=== PATIENT | female | born 1935 | race Caucasian/White ===

== ENCOUNTER 2023-10-03 14:18 | Emergency (ER) | payer MEDICARE, MEDICAID ==
[~2023-10-03] VITALS: Ht 154.9 cm; Wt 49.1 kg
[~2023-10-03 14:18] MED LIST: ASPI-1265 PO; LOP25T PO
[2023-10-03] MEDS ORDERED: normal saline 1000ML IV soln IVB ONE (16:25)
[2023-10-03 17:08] LABS: BASOPHILS % (AUTO) 0.5 % (0-1); EOSINOPHILS % (AUTO) 0.9 % (0-6); HEMATOCRIT 36.5 % (35.0-45.0); HEMOGLOBIN 12.1 g/dl (12.0-16.0); LYMPHOCYTES # (AUTO) 1.7 X10'3 (1.1-4.8); LYMPHOCYTES % (AUTO) 32.6 % (21-51); MEAN CORPUSCULAR HEMOGLOBIN 34.9 PG (27.0-31.0); MEAN CORPUSCULAR HGB CONC 33.1 g/dL (33.0-36.5); MEAN CORPUSCULAR VOLUME 105.6 FL (78-98); MONOCYTES # (AUTO) 0.3 X10'3 (0-0.9); NEUTROPHILS # (AUTO) 3.1 X10'3 (1.8-7.7); PLATELET COUNT 281 X10'3 (140-440); RED BLOOD COUNT 3.46 X10'6 (4.20-5.60); RED CELL DISTRIBUTION WIDTH 14.9 % (11.5-14.5); WHITE BLOOD COUNT 5.1 X10'3 (4.5-11.0)
[2023-10-03 17:19] LABS: PROTHROMBIN TIME 10.4 SECONDS (9.0-12.0)
[2023-10-03 17:24] LABS: ALANINE AMINOTRANSFERASE 15 U/L (12-78); ALBUMIN 3.7 G/DL (3.4-5.0); ALBUMIN/GLOBULIN RATIO 0.8 (1.1-1.5); ALKALINE PHOSPHATASE 124 IU/L (46-116); ANION GAP 14 (8-16); ASPARTATE AMINO TRANSFERASE 14 U/L (10-37); BILIRUBIN,TOTAL 0.5 MG/DL (0.1-1.0); BLOOD UREA NITROGEN 43 MG/DL (7-18); BUN/CREATININE RATIO 27.6 (10.0-20.0); CHLORIDE 105 MMOL/L (99-107); CREATININE 1.56 MG/DL (0.40-0.90); GLUCOSE 137 MG/DL (70-104); POTASSIUM 4.9 MMOL/L (3.5-5.1); SODIUM 138 MMOL/L (135-145); TOTAL CARBON DIOXIDE 19.5 MMOL/L (24-32); TOTAL PROTEIN 8.3 G/DL (6.4-8.2); eCRCL 19 ML/MIN; eGFR 31 ML/MIN
[2023-10-03 17:27] LABS: LIPASE 9 U/L (16-77)
[2023-10-03] MEDS ORDERED: amox tr/potassium clavulanate 500mg/125mg TAB PO ONE (19:20)
[2023-10-03] MEDS ORDERED: LOPE2CAP PO (19:20)
[2023-10-03] MEDS ORDERED: AMOX-419 PO (19:20)
[2023-10-03] MEDS ORDERED: ondansetron 4mg rapidly disintigrating tab PO ONE (19:20)
[2023-10-03] MEDS ORDERED: loperamide 2mg capsule PO ONE (19:20)
[2023-10-03] MEDS ORDERED: ONDA8TAB13 PO (19:20)
[2023-10-03 19:34] VITALS: BP 168/86; PULSE 89; RESP 16; TEMP 98; O2SAT 98
== END 2023-10-03 19:37 | disposition admitted as inpatient to this hospital (09) ==
LOC: ER 14:19
DX: K52.9 Noninfective gastroenteritis and colitis, unspecified (principal); M54.50 Low back pain, unspecified; R32 Unspecified urinary incontinence; I10 Essential (primary) hypertension; E11.9 Type 2 diabetes mellitus without complications; Z79.82 Long term (current) use of aspirin; Z79.899 Other long term (current) drug therapy
CPT/HCPCS: 36415; 74176; 80053; 83605; 83690; 83735; 84145; 84484; 85025; 85610; 93005; 96360; 96361; 99285; J7030; 99284

== ENCOUNTER 2023-12-23 14:33 | Inpatient (IN) | payer MEDICARE, MEDICAID ==
[~2023-12-23] VITALS: Ht 152.4 cm; Wt 52.6 kg
[~2023-12-23 14:33] MED LIST changes: +LOPE2CAP PO; +ONDA8TAB13 PO
[2023-12-23] MEDS: HYDROcodone/acetaminophen 5mg/325mg tablet PO ONE (16:32)
[2023-12-23] MEDS: ondansetron 4mg rapidly disintigrating tab PO ONE (16:33)
[2023-12-23 17:51] LABS: BASOPHILS % (AUTO) 0.3 % (0-1); EOSINOPHILS % (AUTO) 0 % (0-6); HEMATOCRIT 34.7 % (35.0-45.0); HEMOGLOBIN 11.7 g/dl (12.0-16.0); LYMPHOCYTES # (AUTO) 1.2 X10'3 (1.1-4.8); LYMPHOCYTES % (AUTO) 15.2 % (21-51); MEAN CORPUSCULAR HEMOGLOBIN 36.5 PG (27.0-31.0); MEAN CORPUSCULAR HGB CONC 33.6 g/dL (33.0-36.5); MEAN CORPUSCULAR VOLUME 108.6 FL (78-98); MEAN PLATELET VOLUME 7.6 FL (7.4-10.4); MONOCYTES # (AUTO) 0.3 X10'3 (0-0.9); MONOCYTES % (AUTO) 3.8 % (2-12); NEUTROPHILS # (AUTO) 6.5 X10'3 (1.8-7.7); NEUTROPHILS % (AUTO) 80.7 % (42-75); PLATELET COUNT 292 X10'3 (140-440); RED BLOOD COUNT 3.19 X10'6 (4.20-5.60); RED CELL DISTRIBUTION WIDTH 14.3 % (11.5-14.5)
[2023-12-23 17:54] LABS: ALBUMIN 3.3 G/DL (3.4-5.0); ANION GAP 14 (8-16); BLOOD UREA NITROGEN 33 MG/DL (7-18); BUN/CREATININE RATIO 20.1 (10.0-20.0); CALCIUM 9.4 MG/DL (8.5-10.1); CHLORIDE 105 MMOL/L (99-107); CREATININE 1.64 MG/DL (0.40-0.90); GLUCOSE 192 MG/DL (70-104); POTASSIUM 4.5 MMOL/L (3.5-5.1); SODIUM 138 MMOL/L (135-145); TOTAL CARBON DIOXIDE 19.3 MMOL/L (24-32); eCRCL 17 ML/MIN; eGFR 30 ML/MIN
[2023-12-23] MEDS ORDERED: magnesium Cl slow-release 64mg tablet PO PRN (21:15)
[2023-12-23] MEDS ORDERED: mag hydrox/Alum hydrox/simeth 30ml oral suspension PO PRN (21:15)
[2023-12-23] MEDS ORDERED: potassium Cl 20 mEq SR tablet PO PRN ×2 (21:15)
[2023-12-23] MEDS ORDERED: potassium Cl 40MEQ/1/2NS 520ml 520 ML IV PRN (21:15)
[2023-12-23] MEDS ORDERED: magnesium 2GM in 50ml NS 50 ML IV PRN (21:15)
[2023-12-23] MEDS ORDERED: acetaminophen 325mg tablet PO PRN (21:15)
[2023-12-23] MEDS ORDERED: magnesium hydroxide 30ml (MOM) UD suspension PO PRN (21:15)
[2023-12-23] MEDS ORDERED: ondansetron/PF 4mg/2ml inj IV PRN (21:15)
[2023-12-23] MEDS ORDERED: magnesium 4gm in 100ml NS 100 ML IV PRN (21:15)
[2023-12-23] MEDS: normal saline 1000ml 1,000 ML IV SCH (21:59)
[2023-12-23] MEDS: HYDROcodone/acetaminophen 10/325mg tab PO PRN (22:04)
[2023-12-23 22:30] VITALS: BP 134/70; PULSE 87; RESP 14; RESP 16; TEMP 98.8; O2SAT 96
[2023-12-23] MEDS: MESSAGE TO PHARMACY PO ONE (23:20)
[2023-12-23] MEDS ORDERED: DEXTROSE 15 GM of carb/4 tabs (each vial/BOTTLE has 4 tablets) PO PRN ×2 (23:20)
[2023-12-23] MEDS ORDERED: dextrose 50%-water 50ml dispensing syringe IV PRN ×2 (23:20)
[2023-12-23] MEDS ORDERED: glucagon, human recombinant 1mg kit SUBCUT PRN (23:20)
[2023-12-24] VITALS (8 sets, daily range): BP systolic 95–162; BP diastolic 55–89; PULSE 65–122; RESP 14–18; TEMP 97.9–98.6; O2SAT 95–99
[2023-12-24 00:21] LABS: HEMOGLOBIN A1C 6.8 % (4.5-6.2)
[2023-12-24] MEDS: insulin glargine (Lantus) pen - multi-dose SQ SCH (00:38)
[2023-12-24 06:20] LABS: BASOPHILS % (AUTO) 0.2 % (0-1); EOSINOPHILS % (AUTO) 0 % (0-6); HEMATOCRIT 29.3 % (35.0-45.0); LYMPHOCYTES # (AUTO) 1.3 X10'3 (1.1-4.8); MEAN CORPUSCULAR HEMOGLOBIN 37.1 PG (27.0-31.0); MEAN CORPUSCULAR HGB CONC 34.3 g/dL (33.0-36.5); MEAN CORPUSCULAR VOLUME 108.4 FL (78-98); MEAN PLATELET VOLUME 7.4 FL (7.4-10.4); MONOCYTES # (AUTO) 0.3 X10'3 (0-0.9); MONOCYTES % (AUTO) 4.5 % (2-12); NEUTROPHILS # (AUTO) 5.3 X10'3 (1.8-7.7); NEUTROPHILS % (AUTO) 76.3 % (42-75); PLATELET COUNT 240 X10'3 (140-440); RED CELL DISTRIBUTION WIDTH 14.2 % (11.5-14.5); WHITE BLOOD COUNT 6.9 X10'3 (4.5-11.0)
[2023-12-24 06:30] LABS: ALBUMIN 2.7 G/DL (3.4-5.0); ANION GAP 5 (8-16); BLOOD UREA NITROGEN 31 MG/DL (7-18); BUN/CREATININE RATIO 21.1 (10.0-20.0); CALCIUM 8.4 MG/DL (8.5-10.1); CHLORIDE 109 MMOL/L (99-107); CREATININE 1.47 MG/DL (0.40-0.90); GLUCOSE 188 MG/DL (70-104); MAGNESIUM 1.8 MG/DL (1.5-2.4); PHOSPHORUS 4.4 MG/DL (2.3-4.5); SODIUM 137 MMOL/L (135-145); eCRCL 19 ML/MIN; eGFR 34 ML/MIN
[2023-12-24 06:37] LABS: POTASSIUM 6.1 MMOL/L (3.5-5.1)
[2023-12-24] MEDS: K and/or MAG REPLACEMENT MC SCH (08:00)
[2023-12-24] MEDS: heparin, porcine 5000 units/ml vial SQ SCH (08:00)
[2023-12-24] MEDS: FLU VACC QS2023-24(6MOS UP)/PF 60 MCG/0.5 ML SYRINGE IM ONE (10:00)
[2023-12-24] MEDS: albuterol 2.5 MG/3 ML nebule NEB ONE (13:15)
[2023-12-24] MEDS: insulin Lispro (HumaLOG) vial - multi-dose SQ SCH (13:52)
[2023-12-24] MEDS: insulin regular, human 10 units/0.1 ml syringe SQ ONE (13:54)
[2023-12-24] MEDS: dextrose 50%-water 50ml dispensing syringe IV ONE (13:55)
[2023-12-24] MEDS: CALCIUM GLUC 1gm/50ml NACL,iso 50 ML IV ONE (13:55)
[2023-12-24] MEDS: metoprolol tartrate 25mg tablet PO ONE (18:46)
[2023-12-24] MEDS: metoprolol tartrate 25mg tablet PO SCH (21:00)
[2023-12-25 05:48] LABS: ALBUMIN 2.3 G/DL (3.4-5.0); ANION GAP 10 (8-16); BLOOD UREA NITROGEN 29 MG/DL (7-18); BUN/CREATININE RATIO 20.7 (10.0-20.0); CALCIUM 8.6 MG/DL (8.5-10.1); CHLORIDE 109 MMOL/L (99-107); GLUCOSE 193 MG/DL (70-104); MAGNESIUM 1.6 MG/DL (1.5-2.4); PHOSPHORUS 3.2 MG/DL (2.3-4.5); POTASSIUM 5.3 MMOL/L (3.5-5.1); SODIUM 139 MMOL/L (135-145); eCRCL 20 ML/MIN; eGFR 35 ML/MIN
[2023-12-25 05:58] LABS: BASOPHILS % (AUTO) 0.2 % (0-1); EOSINOPHILS % (AUTO) 0.2 % (0-6); HEMATOCRIT 25.9 % (35.0-45.0); HEMOGLOBIN 8.8 g/dl (12.0-16.0); LYMPHOCYTES # (AUTO) 1.3 X10'3 (1.1-4.8); LYMPHOCYTES % (AUTO) 20.2 % (21-51); MEAN CORPUSCULAR HEMOGLOBIN 37.2 PG (27.0-31.0); MEAN CORPUSCULAR VOLUME 109.5 FL (78-98); MEAN PLATELET VOLUME 7.8 FL (7.4-10.4); MONOCYTES # (AUTO) 0.4 X10'3 (0-0.9); MONOCYTES % (AUTO) 6.5 % (2-12); NEUTROPHILS # (AUTO) 4.7 X10'3 (1.8-7.7); NEUTROPHILS % (AUTO) 72.9 % (42-75); PLATELET COUNT 203 X10'3 (140-440); RED BLOOD COUNT 2.36 X10'6 (4.20-5.60); RED CELL DISTRIBUTION WIDTH 14.3 % (11.5-14.5); WHITE BLOOD COUNT 6.4 X10'3 (4.5-11.0)
[2023-12-25 07:05] VITALS: BP 119/68; PULSE 90; RESP 18; TEMP 98; O2SAT 98
[2023-12-25 08:00] VITALS: RESP 18; O2SAT 98
[2023-12-25 10:00] VITALS: BP 92/54; PULSE 98; RESP 18; TEMP 97.6; O2SAT 100
[2023-12-25] MEDS: FLU VACC QS2023-24(6MOS UP)/PF 60 MCG/0.5 ML SYRINGE IM ONE (11:22)
[2023-12-25] MEDS: sodium polystyrene sulfonate 15gm/60ml oral suspension PO ONE (11:37)
[2023-12-25 18:00] VITALS: BP 123/67; PULSE 102; RESP 16; TEMP 98.7; O2SAT 96
[2023-12-25 20:00] VITALS: RESP 16; O2SAT 96
[2023-12-25 22:00] VITALS: BP 120/66; PULSE 114; RESP 16; TEMP 99.4; O2SAT 96
[2023-12-26] VITALS (20 sets, daily range): BP systolic 105–142; BP diastolic 54–89; PULSE 78–103; RESP 12–20; TEMP 97.2–98.3; O2SAT 96–100
[2023-12-26 06:38] LABS: APTT 26 SECONDS (22-32)
[2023-12-26 06:41] LABS: BASOPHILS % (AUTO) 0.1 % (0-1); EOSINOPHILS % (AUTO) 0.2 % (0-6); HEMATOCRIT 22.9 % (35.0-45.0); HEMOGLOBIN 7.7 g/dl (12.0-16.0); LYMPHOCYTES # (AUTO) 1.2 X10'3 (1.1-4.8); LYMPHOCYTES % (AUTO) 23.2 % (21-51); MEAN CORPUSCULAR HEMOGLOBIN 37.1 PG (27.0-31.0); MEAN CORPUSCULAR HGB CONC 33.8 g/dL (33.0-36.5); MEAN CORPUSCULAR VOLUME 109.8 FL (78-98); MEAN PLATELET VOLUME 7.8 FL (7.4-10.4); MONOCYTES # (AUTO) 0.3 X10'3 (0-0.9); MONOCYTES % (AUTO) 6.5 % (2-12); NEUTROPHILS # (AUTO) 3.6 X10'3 (1.8-7.7); PLATELET COUNT 171 X10'3 (140-440); RED BLOOD COUNT 2.08 X10'6 (4.20-5.60); RED CELL DISTRIBUTION WIDTH 14.4 % (11.5-14.5); WHITE BLOOD COUNT 5.2 X10'3 (4.5-11.0)
[2023-12-26 06:49] LABS: ANION GAP 10 (8-16); BLOOD UREA NITROGEN 31 MG/DL (7-18); BUN/CREATININE RATIO 22.8 (10.0-20.0); CALCIUM 8.4 MG/DL (8.5-10.1); CHLORIDE 111 MMOL/L (99-107); CREATININE 1.36 MG/DL (0.40-0.90); GLUCOSE 157 MG/DL (70-104); MAGNESIUM 1.4 MG/DL (1.5-2.4); PHOSPHORUS 3.5 MG/DL (2.3-4.5); POTASSIUM 4.6 MMOL/L (3.5-5.1); SODIUM 142 MMOL/L (135-145); TOTAL CARBON DIOXIDE 20.9 MMOL/L (24-32); eCRCL 21 ML/MIN; eGFR 37 ML/MIN
[2023-12-26] MEDS ORDERED: vancomycin 1,000mg inj ONE (07:44)
[2023-12-26] MEDS ORDERED: BUPIVAcaine 0.5% inj/PF 30 ML ONE (07:44)
[2023-12-26] MEDS ORDERED: BUPIVAcaine 0.25% w/Epi /PF 30ml vial ONE (07:44)
[2023-12-26] MEDS: ringers solution, lacted 1,000 ML IV SCH (08:10)
[2023-12-26] MEDS ORDERED: ondansetron/PF 4mg/2ml inj IV PRN (08:10)
[2023-12-26] MEDS ORDERED: proCHLORperazine 10 MG/2 ml inj IV PRN (08:10)
[2023-12-26] MEDS ORDERED: meperidine/PF 25mg/ml syringe IV PRN ×3 (08:10)
[2023-12-26] MEDS ORDERED: morphine 2 MG/ML inj. syringe IV PRN (08:10)
[2023-12-26] MEDS ORDERED: morphine 4 MG/ML inj SYRINge IV PRN (08:10)
[2023-12-26] MEDS ORDERED: sevoflurane 250ml liquid IH ONE (08:16)
[2023-12-26] MEDS ORDERED: fentaNYL/PF 50MCG/1 ML 2ML syringe ONE (08:18)
[2023-12-26] MEDS ORDERED: propofol inj 20 ML IV ONE (08:18)
[2023-12-26] MEDS ORDERED: ceFAZolin 1000mg inj ONE ×2 (08:39)
[2023-12-26] MEDS ORDERED: tranexamic acid 100mg/ml inj. ONE (08:44)
[2023-12-26 10:15] LABS: BILIRUBIN,URINE NEGATIVE (Neg); CLARITY,URINE CLOUDY (Clear); COLOR,URINE YELLOW (Yellow); GLUCOSE, URINE NEGATIVE (Neg); KETONES,URINE NEGATIVE (Neg); LEUKOCYTE ESTERASE ,URINE SMALL (Neg); NITRITES, URINE POSITIVE (Neg); OCCULT BLOOD,URINE SMALL (Neg); PROTEIN,URINE 30 mg/dl (Neg); UROBILINOGEN,URINE 0.2 E.U/dL (0.2-1.0)
[2023-12-26 10:20] LABS: UA COLLECTION TYPE FOLEY CATH
[2023-12-26 10:33] LABS: SQUAMOUS EPITHELIAL CELL,UR MANY /LPF (FEW)
[2023-12-26 10:37] LABS: WBC,URINE 20-30 /HPF (0-4)
[2023-12-26 10:38] LABS: BACTERIA,URINE 4+ /HPF (Neg)
[2023-12-26] MEDS ORDERED: CEFAZOLIN 2 GM injection IM SCH (16:00)
[2023-12-26] MEDS: phenazopyridine 100mg tablet PO ONE (16:10)
[2023-12-26] MEDS: cefazolin 2gm/D5W 100mL 100 ML IV SCH (16:51)
[2023-12-26] MEDS: enoxaparin 30mg/0.3ml syringe SUBCUT SCH (20:42)
[2023-12-26] MEDS: insulin glargine (Lantus) pen - multi-dose SQ SCH ×2 (22:25→23:15)
[2023-12-27] VITALS (10 sets, daily range): BP systolic 96–138; BP diastolic 49–73; PULSE 81–99; RESP 14–22; TEMP 96.9–99; O2SAT 95–99
[2023-12-27 06:34] LABS: BASOPHILS % (AUTO) 0.3 % (0-1); EOSINOPHILS % (AUTO) 0.9 % (0-6); LYMPHOCYTES % (AUTO) 21.2 % (21-51); MEAN CORPUSCULAR HEMOGLOBIN 37.4 PG (27.0-31.0); MEAN CORPUSCULAR VOLUME 110.1 FL (78-98); MEAN PLATELET VOLUME 7.9 FL (7.4-10.4); MONOCYTES # (AUTO) 0.4 X10'3 (0-0.9); MONOCYTES % (AUTO) 7.1 % (2-12); NEUTROPHILS # (AUTO) 3.5 X10'3 (1.8-7.7); NEUTROPHILS % (AUTO) 70.5 % (42-75); PLATELET COUNT 159 X10'3 (140-440); RED BLOOD COUNT 1.82 X10'6 (4.20-5.60); RED CELL DISTRIBUTION WIDTH 13.9 % (11.5-14.5); WHITE BLOOD COUNT 4.9 X10'3 (4.5-11.0)
[2023-12-27 06:51] LABS: ALBUMIN 1.9 G/DL (3.4-5.0); ANION GAP 8 (8-16); BLOOD UREA NITROGEN 29 MG/DL (7-18); BUN/CREATININE RATIO 23.2 (10.0-20.0); CALCIUM 8.1 MG/DL (8.5-10.1); CHLORIDE 111 MMOL/L (99-107); CREATININE 1.25 MG/DL (0.40-0.90); GLUCOSE 158 MG/DL (70-104); MAGNESIUM 1.6 MG/DL (1.5-2.4); PHOSPHORUS 3.2 MG/DL (2.3-4.5); POTASSIUM 4.3 MMOL/L (3.5-5.1); SODIUM 139 MMOL/L (135-145); TOTAL CARBON DIOXIDE 20.4 MMOL/L (24-32); eCRCL 22 ML/MIN; eGFR 40 ML/MIN
[2023-12-27 06:56] LABS: HEMOGLOBIN 6.8 g/dl (12.0-16.0)
[2023-12-27 07:59] LABS: PLATELET ESTIMATE NORMAL
[2023-12-27 08:00] LABS: SCHISTOCYTES FEW; TEAR DROP CELLS FEW
[2023-12-27 08:08] LABS: POLYCHROMASIA FEW; ROULEAUX 1+
[2023-12-27] MEDS: acetaminophen 325mg tablet PO PRN (10:53)
[2023-12-27 17:30] LABS: HEMATOCRIT 26.3 % (35.0-45.0); MEAN CORPUSCULAR HEMOGLOBIN 35.1 PG (27.0-31.0); MEAN CORPUSCULAR HGB CONC 34.1 g/dL (33.0-36.5); MEAN CORPUSCULAR VOLUME 102.9 FL (78-98); MEAN PLATELET VOLUME 7.6 FL (7.4-10.4); PLATELET COUNT 160 X10'3 (140-440); RED BLOOD COUNT 2.55 X10'6 (4.20-5.60); RED CELL DISTRIBUTION WIDTH 18.3 % (11.5-14.5); WHITE BLOOD COUNT 5.4 X10'3 (4.5-11.0)
[2023-12-28 02:00] VITALS: BP 109/60; PULSE 78; RESP 14; TEMP 97.3; O2SAT 95
[2023-12-28 06:00] VITALS: BP 116/57; PULSE 81; RESP 16; TEMP 99; O2SAT 98
[2023-12-28 06:11] LABS: BASOPHILS % (AUTO) 0.3 % (0-1); EOSINOPHILS # (AUTO) 0.1 X10'3 (0-0.9); EOSINOPHILS % (AUTO) 2.3 % (0-6); HEMATOCRIT 25.9 % (35.0-45.0); LYMPHOCYTES # (AUTO) 1.2 X10'3 (1.1-4.8); LYMPHOCYTES % (AUTO) 23.2 % (21-51); MEAN CORPUSCULAR HEMOGLOBIN 35.7 PG (27.0-31.0); MEAN CORPUSCULAR HGB CONC 34.6 g/dL (33.0-36.5); MEAN CORPUSCULAR VOLUME 103.3 FL (78-98); MONOCYTES # (AUTO) 0.4 X10'3 (0-0.9); MONOCYTES % (AUTO) 6.9 % (2-12); NEUTROPHILS # (AUTO) 3.5 X10'3 (1.8-7.7); NEUTROPHILS % (AUTO) 67.3 % (42-75); PLATELET COUNT 165 X10'3 (140-440); RED BLOOD COUNT 2.51 X10'6 (4.20-5.60); RED CELL DISTRIBUTION WIDTH 18.5 % (11.5-14.5); WHITE BLOOD COUNT 5.2 X10'3 (4.5-11.0)
[2023-12-28 06:32] LABS: ALBUMIN 1.7 G/DL (3.4-5.0); ANION GAP 7 (8-16); BLOOD UREA NITROGEN 27 MG/DL (7-18); CALCIUM 7.6 MG/DL (8.5-10.1); CHLORIDE 105 MMOL/L (99-107); CREATININE 1.35 MG/DL (0.40-0.90); GLUCOSE 134 MG/DL (70-104); MAGNESIUM 1.3 MG/DL (1.5-2.4); PHOSPHORUS 2.4 MG/DL (2.3-4.5); POTASSIUM 4.5 MMOL/L (3.5-5.1); SODIUM 134 MMOL/L (135-145); TOTAL CARBON DIOXIDE 22.5 MMOL/L (24-32); eCRCL 21 ML/MIN; eGFR 37 ML/MIN
[2023-12-28] MEDS: HYDROcodone/acetaminophen 5mg/325mg tablet PO PRN (11:21)
[2023-12-28 12:00] VITALS: BP 138/71; PULSE 97; RESP 14; TEMP 98.5; O2SAT 96
[2023-12-28 13:00] VITALS: BP_SYST 138; PULSE 97
== END 2023-12-28 15:26 | DRG 480 ==
LOC: ER 14:33 → SUR 3N 21:15
PROVIDERS: ADMIT Internal Medicine; ATTEND Internal Medicine
PROC: 0QS604Z Reposition Right Upper Femur with Internal Fixation Device, Open Approach (ICD-10-PCS; principal; 2023-12-26 08:16)
PROC: 30233N1 Transfusion of Nonautologous Red Blood Cells into Peripheral Vein, Percutaneous Approach (ICD-10-PCS; 2023-12-27)
DX: S72.141A Displaced intertrochanteric fracture of right femur, initial encounter for closed fracture (principal); N17.0 Acute kidney failure with tubular necrosis; C90.00 Multiple myeloma not having achieved remission; N18.30 Chronic kidney disease, stage 3 unspecified; I12.9 Hypertensive chronic kidney disease with stage 1 through stage 4 chronic kidney disease, or unspecified chronic kidney disease; M10.9 Gout, unspecified; Z66 Do not resuscitate; E87.5 Hyperkalemia; D53.9 Nutritional anemia, unspecified; L89.152 Pressure ulcer of sacral region, stage 2; E11.22 Type 2 diabetes mellitus with diabetic chronic kidney disease; W18.39XA Other fall on same level, initial encounter; Y93.89 Activity, other specified; Y92.89 Other specified places as the place of occurrence of the external cause; Y99.8 Other external cause status; Z85.51 Personal history of malignant neoplasm of bladder; Z85.830 Personal history of malignant neoplasm of bone; Z79.82 Long term (current) use of aspirin; Z79.899 Other long term (current) drug therapy
CPT/HCPCS: 36415; 36430; 73502; 73564; 73590; 73700; 76000; 80048; 81001; 82948; 83036; 83735; 84100; 84132; 85008; 85025; 85027; 85610; 85730; 86885; 86900; 86901; 86920; 87081; 93005; 94640; 97161; 97530; 97535; 99285; A4314; A4618; A5200; A6213; A6258; A6449; A7000; C1713; G0378; J0610; J0690; J1644; J1650; J1815; J2704; J3010; J3370; J3490; J7030; J7040; P9016; P9045; S0020

== ENCOUNTER 2024-08-12 13:39 | Emergency (ER) | payer MEDICARE, MEDICAID ==
[~2024-08-12] VITALS: Ht 152.4 cm; Wt 44.0 kg
[~2024-08-12 13:39] MED LIST changes: -ASPI-1265 PO; +ONDA-245 PO; -ONDA8TAB13 PO
[2024-08-12 15:35] LABS: ALANINE AMINOTRANSFERASE 15 U/L (12-78); ALBUMIN 3.3 G/DL (3.4-5.0); ALBUMIN/GLOBULIN RATIO 0.6 (1.1-1.5); ALKALINE PHOSPHATASE 174 IU/L (46-116); ANION GAP 8 (8-16); ASPARTATE AMINO TRANSFERASE 25 U/L (10-37); BILIRUBIN,TOTAL 0.4 MG/DL (0.1-1.0); BLOOD UREA NITROGEN 35 MG/DL (7-18); BUN/CREATININE RATIO 20.8 (10.0-20.0); CALCIUM 9.4 MG/DL (8.5-10.1); CHLORIDE 100 MMOL/L (99-107); CREATININE 1.68 MG/DL (0.40-0.90); GLUCOSE 196 MG/DL (70-104); POTASSIUM 5.2 MMOL/L (3.5-5.1); SODIUM 133 MMOL/L (135-145); TOTAL CARBON DIOXIDE 25.2 MMOL/L (24-32); TOTAL PROTEIN 9.1 G/DL (6.4-8.2); eCRCL 16 ML/MIN; eGFR 29 ML/MIN
[2024-08-12 16:54] LABS: BASOPHILS % (AUTO) 0.7 % (0-1); EOSINOPHILS % (AUTO) 0.2 % (0-6); HEMATOCRIT 38.1 % (35.0-45.0); HEMOGLOBIN 12.7 g/dl (12.0-16.0); LYMPHOCYTES % (AUTO) 15.6 % (21-51); MEAN CORPUSCULAR HEMOGLOBIN 31.7 PG (27.0-31.0); MEAN CORPUSCULAR HGB CONC 33.4 g/dL (33.0-36.5); MEAN CORPUSCULAR VOLUME 94.8 FL (78-98); MEAN PLATELET VOLUME 7.2 FL (7.4-10.4); MONOCYTES # (AUTO) 0.2 X10'3 (0-0.9); MONOCYTES % (AUTO) 3.5 % (2-12); NEUTROPHILS # (AUTO) 5.2 X10'3 (1.8-7.7); PLATELET COUNT 333 X10'3 (140-440); RED BLOOD COUNT 4.02 X10'6 (4.20-5.60); RED CELL DISTRIBUTION WIDTH 14.1 % (11.5-14.5); WHITE BLOOD COUNT 6.5 X10'3 (4.5-11.0)
[2024-08-12 18:23] LABS: BILIRUBIN,URINE NEGATIVE (Neg); CLARITY,URINE CLOUDY (Clear); COLOR,URINE YELLOW (Yellow); GLUCOSE, URINE NEGATIVE (Neg); KETONES,URINE TRACE mg/dl (Neg); LEUKOCYTE ESTERASE ,URINE LARGE (Neg); NITRITES, URINE NEGATIVE (Neg); OCCULT BLOOD,URINE SMALL (Neg); PROTEIN,URINE 100 mg/dl (Neg); UROBILINOGEN,URINE 0.2 E.U/dL (0.2-1.0)
[2024-08-12 18:29] LABS: UA COLLECTION TYPE STRAIGHT CATH; WBC CLUMPS,URINE MODERATE /HPF (NEGATIVE); WBC,URINE TNTC /HPF (0-4)
[2024-08-12 18:30] LABS: BACTERIA,URINE 4+ /HPF (Neg); SQUAMOUS EPITHELIAL CELL,UR FEW /LPF (FEW)
[2024-08-12 18:31] LABS: MUCUS STRANDS FEW /LPF (Neg); RBC,URINE 0-2 /HPF (0-2)
[2024-08-12] MEDS: CefTRIAXone/D5W-Rocephin 1gm 50 ML IV ONE (20:09)
[2024-08-12] MEDS ORDERED: CEFU250T95 PO (20:10)
[2024-08-12] MEDS: normal saline 1000ml 1,000 ML IV ONE (20:52)
[2024-08-12 21:46] VITALS: BP 121/61; PULSE 75; RESP 16; TEMP 98; O2SAT 96
== END 2024-08-12 21:49 | disposition home or self-care (01) ==
LOC: ER 13:39
DX: N39.0 Urinary tract infection, site not specified (principal); I10 Essential (primary) hypertension; E11.9 Type 2 diabetes mellitus without complications
CPT/HCPCS: 36415; 70450; 71045; 80053; 81001; 85025; 87077; 87088; 87186; 96365; 96366; 99285; C1758; J0696; J7030